=== PATIENT | female | born 1985 | race Two or more races ===

== ENCOUNTER 2025-05-23 15:00 | Inpatient (IN) | payer MEDICAID, OTHER ==
[~2025-05-23] VITALS: Ht 162.6 cm; Wt 83.0 kg
[2025-05-23 15:53] LABS: Hematocrit 40.3 % (36.0-46.0); Hemoglobin 13.8 g/dL (12.2-16.2); Mean Corpuscular Hemoglobin 31.6 pg (28.0-32.0); Mean Corpuscular Volume 92.4 fL (80.0-100.0); Nucleated Red Blood Cells % 0.0 %
[2025-05-23 16:10] LABS: Potassium 3.7 mmol/L (3.5-5.1); Sodium 140 mmol/L (136-145)
[2025-05-23 16:11] LABS: Anion Gap 9 (5-15); Calcium 9.3 mg/dL (8.7-10.4); Carbon Dioxide 24 mmol/L (20-31)
[2025-05-23 16:16] LABS: BUN/Creatinine Ratio 8.1 (10.0-20.0); Blood Urea Nitrogen 5 mg/dL (9-23); Chloride 107 mmol/L (98-107); Glucose 101 mg/dL (74-106)
--- NOTE | 2025-05-23 17:14 | ED.PDOC ---
History of Present Illness HPI Comments 39-year-old female presents with chief complaint of nonradiating, epigastric abdominal pain. Pain is intermittent in quality following initial, unprovoked and atraumatic onset, this morning. Last meal was a couple of noodle. Did not have any nausea, vomiting, diarrhea, or further associated symptoms. Chief Complaint: Abdominal Pain Time Seen by MD: 14:50 Reviewed Notes: Nurses Notes, Medications, Allergies Allergies: Coded Allergies: NO KNOWN ALLERGIES (Unverified , 05/23/25) Information Source: Patient Mode of Arrival: Ambulatory Severity: Moderate Timing: Hours Duration: Since onset Prehospital treatment: None Past Medical History PAST MEDICAL HISTORY: Denies Surgical History (Other): Unspecified laparoscopic procedure Family History Family History: Unknown Social History Smoker: Non-Smoker Alcohol: Denies ETOH Use Drugs: Denies Drug Use Lives In: Home All Other Systems: Reviewed and Negative (Comprehensive systems review obtained and negative except for what is stated in the HPI.) Physical Exam General Appearance: Moderate Distress HEENT: Normal ENT Inspection, Pharynx Normal, TMs Normal Neck: Full Range of Motion, Non-Tender, Normal, Normal Inspection Respiratory: Chest Non-Tender, Lungs Clear, No Accessory Muscle Use, No Respiratory Distress, Normal Breath Sounds Cardiovascular: No Edema, No JVD, No Murmur, No Gallop, Normal Peripheral Pulses, Regular Rate/Rhythm Breast Exam: Deferred Gastrointestinal: Diffuse Genitalia: Deferred Pelvic: Deferred Rectal: Deferred Extremities: No calf tenderness, Normal capillary refill, Normal inspection, Normal range of motion, Non-tender, No pedal edema Musculoskeletal : Apperance: Normal Neurologic: Alert, gearman II-XII nml as Tested, No Motor Deficits, Normal Affect, Normal Mood, No Sensory Deficits Cerebellar Function: Normal Reflexes: Normal Skin: Dry, Normal Color, Warm Peripheral Pulses: 3+ Radial (R), 3+ Radial (L) Lymphatic: No Adenopathy Was a procedure done? Was a procedure done?: No Differential Dx Considerations may include: Gastritis, gastroenteritis, GERD, PUD, gallstones, cholecystitis, among others X-Ray, Labs, Meds, VS Vital Signs Date Time Temp Pulse Resp B/P (MAP) Pulse Ox O2 Delivery O2 Flow Rate FiO2 05/23/25 15:02 98.0 63 15 117/75 100 98.0 Lab Test 05/23/25 15:33 Range/Units White Blood Count 7.1 4.4-10.8 10^3/uL Red Blood Count 4.37 4.0-5.20 10^6/uL Hemoglobin 13.8 12.2-16.2 g/dL Hematocrit 40.3 36.0-46.0 % Mean Corpuscular Volume 92.4 80.0-100.0 fL Mean Corpuscular Hemoglobin 31.6 28.0-32.0 pg Mean Corpuscular Hemoglobin Concent 34.2 32.0-36.0 g/dL Red Cell Distribution Width 12.7 11.8-14.3 % Platelet Count 331 140-450 10^3/uL Mean Platelet Volume 7.3 6.9-10.8 fL Neutrophils (%) (Auto) 74.4 37.0-80.0 % Lymphocytes (%) (Auto) 19.9 10.0-50.0 % Monocytes (%) (Auto) 4.4 0.0-12.0 % Eosinophils (%) (Auto) 0.7 0.0-7.0 % Basophils (%) (Auto) 0.6 0.0-2.0 % Neutrophils # (Auto) 5.3 1.6-8.6 10 ^3/uL Lymphocytes # (Auto) 1.4 0.4-5.4 10 ^3/uL Monocytes # (Auto) 0.3 0-1.3 10 ^3/uL Eosinophils # (Auto) 0 0-0.8 10 ^3/uL Basophils # (Auto) 0 0-0.2 10 ^3/uL Nucleated Red Blood Cells 0.0 % Sodium Level 140 136-145 mmol/L Potassium Level 3.7 3.5-5.1 mmol/L Chloride Level 107 98-107 mmol/L Carbon Dioxide Level 24 20-31 mmol/L Anion Gap 9 5-15 Blood Urea Nitrogen 5 L 9-23 mg/dL Creatinine 0.62 0.550-1.02 mg/dL Glomerular Filtration Rate Calc 116 >90 mL/min BUN/Creatinine Ratio 8.1 L 10.0-20.0 Serum Glucose 101 74-106 mg/dL Calcium Level 9.3 8.7-10.4 mg/dL Patient alert. Complaining of epigastric pain. Vitals stable. Answering questions. Possibly laparoscopic. Severe abdominal pain. WBC within normal limits. Hemoglobin within normal limits. Laboratory clinical picture does not correlate with the pain level she is having. Establish intravenous access. Was given fluids. Was given morphine. Was given Zofran. Explained to the patient. Continue monitoring. Time of 1ST Reevaluation: 17:20 Reevaluation 1ST: Unchanged Patient Education/Counseling: Diagnosis, Treatment, Need For Follow Up Family Education/Counseling: No Family Present SEPSIS Sepsis Screen Date sepsis recognized/suspect: May 23, 2025 Time Sepsis recognized/suspect: 1504 Recent Procedure: No On Antibiotic Therapy: No Respiratory Rate >20: No Heart Rate >90: No Temp<36 C (96.8 F) or >38.3 C: No SBP <90 or MAP <65 mmHG: No New Acute Mental Status Change: No Is the patient on CPAP, BIPAP,: No Physician Orders Urinalysis (05/23/25 15:20) Ct Ab Pel Wo Con-No Oral Or Iv (05/23/25 17:20) Vital Signs Date Time Temp Pulse Resp B/P (MAP) Pulse Ox O2 Delivery O2 Flow Rate FiO2 05/23/25 15:02 98.0 63 15 117/75 100 98.0 Laboratory Tests Test 05/23/25 15:33 White Blood Count 7.1 10^3/uL (4.4-10.8) Departure 1 Departure Time of Disposition: 17:30 Impression: Primary Impression: Intractable abdominal pain Disposition: ADMITTED INPATIENT Admit to: Med Surg Condition: Guarded Critical Care Note Critical Care Time?: No Stability Stability form required: No Heart Score Heart Score: Heart Score Response (Comments) Value History N/A 0 EKG N/A 0 Age N/A 0 Risk Factors N/A 0 Troponin N/A 0 Total 0 I personally scribed for MINISTERIO KESSLER MD ([email or web address]) on 05/23/25 at 17:14. Electronically submitted by Castillo Terrell ([email or web address]). MINISTERIO KESSLER MD May 23, 2025 17:14
--- NOTE | 2025-05-23 17:59 | DVH ---
EXAM: CT CT AB PEL WO CON-NO ORAL OR IV INDICATION: gastritis TECHNIQUE: Volumetric multidetector CT images of the abdomen and pelvis were obtained without contras t. All CT scans at this facility use dose modulation, iterative reconstruction, and/or weight based d osing when appropriate to reduce radiation dose to as low as reasonably achievable. COMPARISON: None FINDINGS: [LOWER CHEST]: The partially visualized lung bases are clear without a pleural effusion. The cardiac size is normal without pericardial effusion. [LIVER]: Normal hepatic size without suspicious focal lesion. [GALLBLADDER AND BILIARY TREE]: Surgically absent. [SPLEEN]: Unremarkable. [PANCREAS]: Unremarkable. [ADRENAL GLANDS]: Unremarkable [KIDNEYS]: No hydronephrosis. 1 mm nonobstructive left inferior renal caliceal stone. [BLADDER]: Unremarkable for the degree distention. [REPRODUCTIVE ORGANS]: Unremarkable. [BOWEL/MESENTERY]: No significant abnormal stomach wall thickening. no definitive evidence of gastrit is. Air-fluid level within the transverse colon. Correlate with clinical exam to exclude colitis. [ASCITES]: Absent [LYMPHADENOPATHY]: No pathologically enlarged lymph nodes by CT size criteria [VASCULATURE]: No aneurysmal dilatation. [ABDOMINAL WALL]: Unremarkable. [MUSCULOSKELETAL]: No acute fracture or aggressive focal osseous lesion. Posterior contour irregulari ty of the coccyx, which may be seen in the setting of prior trauma. IMPRESSION: 1. No CT evidence of acute gastritis. 2. Air-fluid level within the transverse colon. Correlate with clinical exam to exclude colitis.
[2025-05-23] MEDS: SODIUM CHLORIDE 0.9% 1,000 ML IV ONE (19:50)
[2025-05-23] MEDS: PIPERACILLIN-TAZOB 3.375GM 100 ML IV ONE (19:51)
[2025-05-23] MEDS: ONDANSETRON HCL 4 MG/2 ML VIAL IV ONE (19:51)
[2025-05-23] MEDS: MORPHINE SULFATE 4 MG/ML SYR/VIAL IV ONE (19:51)
[2025-05-23 23:00] VITALS: PULSE 48; RESP 14; O2SAT 98
--- NOTE | 2025-05-23 23:29 | DVHHP2 ---
History of Present Illness Reason for Visit: Abdominal pain History of Present Illness 39-year-old female presents for evaluation of abdominal pain. Patient endorses a one-week history of sharp epigastric abdominal pain. She states his symptoms became worse today with associated nausea, diarrhea and chills. Denies cardiac or respiratory complaints. Past Medical History Denies Past Surgical History Denies Family History Noncontributory Smoke: No ALCOHOL: none Drugs: None Lives: with Family Review of Systems Review of Systems Review of systems are currently negative otherwise addressed in HPI. Allergies: Coded Allergies: NO KNOWN ALLERGIES (Unverified , 05/23/25) Exam Vital Signs Vital Signs Date Time Temp Pulse Resp B/P (MAP) Pulse Ox O2 Delivery O2 Flow Rate FiO2 05/23/25 20:55 55 16 105/63 05/23/25 20:48 97.4 98 97.4 Exam Gen: 34-year-old female in mild distress Skin: Warm, dry, normal color and texture, no rash. HEENT: Normocephalic atraumatic, mucous membranes moist and pink. Neck: Cervical and supraclavicular nodes normal without enlargement, trachea is midline, thyroid gland is normal without masses. Pulmonary: Clear to auscultation and percussion bilaterally. Cardiac: Regular rate and rhythm. No murmur Abdomen: Soft, epigastric tenderness, nondistended, bowel sounds present all 4 quadrants, no guarding, no rigidity, no organomegaly. Extremities: No cyanosis, clubbing, no edema Neuro: Cranial nerves II through XII grossly intact, normal affect and speech, no focal motor deficits. Labs/Xrays ORDERING PHYSICIAN: MINISTERIO KESSLER MD PROCEDURE(s): ABPL - CT AB PEL WO CON-NO ORAL OR IV REASON: gastritis ORDER NUMBER(s): [id number], ACCESSION NUMBER(s): [id number] EXAM: CT CT AB PEL WO CON-NO ORAL OR IV INDICATION: gastritis TECHNIQUE: Volumetric multidetector CT images of the abdomen and pelvis were obtained without contrast. All CT scans at this facility use dose modulation, iterative reconstruction, and/or weight based dosing when appropriate to reduce radiation dose to as low as reasonably achievable. COMPARISON: None FINDINGS: [LOWER CHEST]: The partially visualized lung bases are clear without a pleural effusion. The cardiac size is normal without pericardial effusion. [LIVER]: Normal hepatic size without suspicious focal lesion. [GALLBLADDER AND BILIARY TREE]: Surgically absent. [SPLEEN]: Unremarkable. [PANCREAS]: Unremarkable. [ADRENAL GLANDS]: Unremarkable [KIDNEYS]: No hydronephrosis. 1 mm nonobstructive left inferior renal caliceal stone. [BLADDER]: Unremarkable for the degree distention. [REPRODUCTIVE ORGANS]: Unremarkable. [BOWEL/MESENTERY]: No significant abnormal stomach wall thickening. no definitive evidence of gastritis. Air-fluid level within the transverse colon. Correlate with clinical exam to exclude colitis. [ASCITES]: Absent [LYMPHADENOPATHY]: No pathologically enlarged lymph nodes by CT size criteria [VASCULATURE]: No aneurysmal dilatation. [ABDOMINAL WALL]: Unremarkable. [MUSCULOSKELETAL]: No acute fracture or aggressive focal osseous lesion. Posterior contour irregularity of the coccyx, which may be seen in the setting of prior trauma. IMPRESSION: 1. No CT evidence of acute gastritis. 2. Air-fluid level within the transverse colon. Correlate with clinical exam to exclude colitis. Labs Test 05/23/25 15:33 Range/Units White Blood Count 7.1 4.4-10.8 10^3/uL Red Blood Count 4.37 4.0-5.20 10^6/uL Hemoglobin 13.8 12.2-16.2 g/dL Hematocrit 40.3 36.0-46.0 % Mean Corpuscular Volume 92.4 80.0-100.0 fL Mean Corpuscular Hemoglobin 31.6 28.0-32.0 pg Mean Corpuscular Hemoglobin Concent 34.2 32.0-36.0 g/dL Red Cell Distribution Width 12.7 11.8-14.3 % Platelet Count 331 140-450 10^3/uL Mean Platelet Volume 7.3 6.9-10.8 fL Neutrophils (%) (Auto) 74.4 37.0-80.0 % Lymphocytes (%) (Auto) 19.9 10.0-50.0 % Monocytes (%) (Auto) 4.4 0.0-12.0 % Eosinophils (%) (Auto) 0.7 0.0-7.0 % Basophils (%) (Auto) 0.6 0.0-2.0 % Neutrophils # (Auto) 5.3 1.6-8.6 10 ^3/uL Lymphocytes # (Auto) 1.4 0.4-5.4 10 ^3/uL Monocytes # (Auto) 0.3 0-1.3 10 ^3/uL Eosinophils # (Auto) 0 0-0.8 10 ^3/uL Basophils # (Auto) 0 0-0.2 10 ^3/uL Nucleated Red Blood Cells 0.0 % Sodium Level 140 136-145 mmol/L Potassium Level 3.7 3.5-5.1 mmol/L Chloride Level 107 98-107 mmol/L Carbon Dioxide Level 24 20-31 mmol/L Anion Gap 9 5-15 Blood Urea Nitrogen 5 L 9-23 mg/dL Creatinine 0.62 0.550-1.02 mg/dL Glomerular Filtration Rate Calc 116 >90 mL/min BUN/Creatinine Ratio 8.1 L 10.0-20.0 Serum Glucose 101 74-106 mg/dL Calcium Level 9.3 8.7-10.4 mg/dL SEPSIS Sepsis Screen Date sepsis recognized/suspect: May 23, 2025 Time Sepsis recognized/suspect: 1504 Recent Procedure: No On Antibiotic Therapy: No Respiratory Rate >20: No Heart Rate >90: No Temp<36 C (96.8 F) or >38.3 C: No SBP <90 or MAP <65 mmHG: No New Acute Mental Status Change: No Is the patient on CPAP, BIPAP,: No Physician Orders Ct Ab Pel Wo Con-No Oral Or Iv (05/23/25 17:20) Lipase (05/23/25 23:23) Comprehensive Metabolic Panel (05/23/25 23:23) Complete Blood Count (05/23/25 23:23) Metronidazole Ivpb Flagyl (05/24/25 06:00) * Gi Dvh Vacuum Applicator Operator (05/23/25 23:23) Stool Bacterial Culture (05/23/25 23:23) NS (05/23/25 23:30) Pantoprazole (Protonix) (05/24/25 10:00) Pantoprazole (Protonix) (05/23/25 23:30) Admit (05/23/25 23:23) Hydrocodone-Acet 5/325mg Tab ([place] 5/32 (05/23/25 23:30) Ondansetron Hcl (Zofran) (05/23/25 23:30) Condition: Stable (05/23/25 23:23) Acetaminophen Tablet (Tylenol Tablet) (05/23/25 23:30) Clear Liq Diet (05/24/25 Breakfast) Bedrest With Bathroom Privileg (05/23/25 23:23) Morphine Sulfate Injection (05/23/25 23:30) Vital Signs Date Time Temp Pulse Resp B/P (MAP) Pulse Ox O2 Delivery O2 Flow Rate FiO2 05/23/25 20:55 55 16 105/63 05/23/25 20:48 97.4 55 16 105/63 (77) 98 97.4 05/23/25 19:51 74 18 132/77 Laboratory Tests Test 05/23/25 15:33 White Blood Count 7.1 10^3/uL (4.4-10.8) Medications Medications Dose Ordered Sig/Scott Route Start Time Stop Time Status Last Admin Dose Admin Morphine Sulfate 4 mg ONCE ONCE IV 05/23/25 17:45 05/23/25 17:46 DC 05/23/25 19:51 4 MG Ondansetron HCl 4 mg ONCE ONCE IV 05/23/25 17:45 05/23/25 17:46 DC 05/23/25 19:51 4 MG Piperacillin Sod/ Tazobactam Sod 100 ml @ 100 mls/hr ONCE ONCE IV 05/23/25 18:15 05/23/25 19:14 DC 05/23/25 19:51 100 MLS/HR Sodium Chloride 1,000 ml @ 1,000 mls/hr Q1H ONCE IV 05/23/25 17:45 05/23/25 18:44 DC 05/23/25 19:50 1,000 MLS/HR Assessment/Plan Assessment/Plan Assessment Acute abdominal pain Acute colitis Plan Admit the patient to [facility] to the hospitalist Clear liquid diet GI consult Flagyl Pain management Continue treatment per orders. Plan discussed with: Patient My Orders Orders - JENNA EL Procedure Category Date Status Time Lipase LAB 05/23/25 Transmitted 23:23 Comprehensive LAB 05/23/25 Transmitted Metabolic Panel 23:23 Complete Blood Count LAB 05/23/25 Transmitted 23:23 Metronidazole Ivpb PHA 05/24/25 Transmitted Flagyl 06:00 * Gi Dvh Vacuum Applicator Operator CONS 05/23/25 Transmitted 23:23 Stool Bacterial RADHA 05/23/25 Transmitted Culture 23:23 NS PHA 05/23/25 Transmitted 23:30 Pantoprazole PHA 05/24/25 Transmitted (Protonix) 10:00 Pantoprazole PHA 05/23/25 Transmitted (Protonix) 23:30 Admit ADMIT 05/23/25 Transmitted 23:23 Hydrocodone-Acet PHA 05/23/25 Transmitted 5/325mg Tab ([place] 23:30 Ondansetron Hcl PHA 05/23/25 Transmitted (Zofran) 23:30 Condition: Stable JESUS 05/23/25 Transmitted 23:23 Acetaminophen Tablet PHA 05/23/25 Transmitted (Tylenol Tablet) 23:30 Clear Liq Diet DIET 05/24/25 Transmitted Breakfast Bedrest With Bathroom JESUS 05/23/25 Transmitted Privileg 23:23 Morphine Sulfate PHA 05/23/25 Transmitted Injection 23:30 Date of Service: May 23, 2025 Billing Provider: JENNA EL Common Visit Codes: [id number] INP/OBS CARE (MOD) JENNA EL May 23, 2025 23:29
[2025-05-23] MEDS ORDERED: MORPHINE SULFATE INJ 2 MG/ml SYRG IV PRN (23:30)
[2025-05-23] MEDS ORDERED: ACETAMINOPHEN 325 MG TAB PO PRN (23:30)
[2025-05-23] MEDS ORDERED: ONDANSETRON HCL 4 MG/2 ML VIAL IV PRN (23:30)
[2025-05-23 23:54] LABS: Hematocrit 37.6 % (36.0-46.0); Hemoglobin 12.7 g/dL (12.2-16.2); Mean Corpuscular Hemoglobin 31.4 pg (28.0-32.0); Mean Corpuscular Volume 92.9 fL (80.0-100.0); Nucleated Red Blood Cells % 0.0 %
[2025-05-24] VITALS (7 sets, daily range): BP systolic 94–122; BP diastolic 56–78; PULSE 50–76; RESP 12–18; TEMP 96.2–97.8; O2SAT 95–100
[2025-05-24 00:02] LABS: Alanine Aminotransferase 28 U/L (7-40); Albumin 4.2 g/dL (3.2-4.8); Alkaline Phosphatase 49 U/L (46-116); Anion Gap 8 (5-15); Bilirubin, Total 0.8 mg/dL (0.2-1.0); Carbon Dioxide 25 mmol/L (20-31); Glucose 93 mg/dL (74-106); Lipase 28 U/L (12-53); Sodium 141 mmol/L (136-145); Total Protein 6.6 g/dL (5.7-8.2)
[2025-05-24] MEDS: PANTOPRAZOLE 40 MG/10 ML VIAL INJ IV ONE (00:03)
[2025-05-24] MEDS: SODIUM CHLORIDE 0.9% 1,000 ML IV ONE (00:04)
[2025-05-24 00:07] LABS: BUN/Creatinine Ratio 7.4 (10.0-20.0); Blood Urea Nitrogen < 5 mg/dL (9-23); Calcium 8.5 mg/dL (8.7-10.4); Chloride 108 mmol/L (98-107); Potassium 3.4 mmol/L (3.5-5.1)
[2025-05-24] MEDS: HYDROcodone-ACET 5/325MG TAB ONE (01:05)
[2025-05-24] MEDS: HYDROcodone-ACET 5/325MG TAB PO PRN ×2 (01:06→12:05)
[2025-05-24] MEDS ORDERED: IBUP-1453 PO (03:17)
[2025-05-24] MEDS ORDERED: PANTOPRAZOLE 40 MG/10 ML VIAL INJ IV SCH (10:00)
--- NOTE | 2025-05-24 12:32 | DVHPN2 ---
Subjective The patient is seen and examined at bedside. Still complain of abdominal pain. Reviewed: Care Plan, H&P, Labs, Medications, Previous Orders, Radiology Changes from previous H/P or p: No Changes Objective Vitals Vital Signs Date Time Temp Pulse Resp B/P (MAP) Pulse Ox O2 Delivery O2 Flow Rate FiO2 05/24/25 10:06 96.2 50 16 95/63 (74) 97 96.2 05/24/25 08:00 Room Air* 0 21 Intake/Output Intake and Output 05/24/25 07:00 Intake Total 1100 ml Balance 1100 ml Intake IV Total 1100 ml General Appearance: Alert, Oriented X3, Cooperative HEENT: Atraumatic, PERRLA, EOMI, Mucous membr. moist/pink Neck: Supple Lungs: Clear to auscultation, Normal air movement Cardiovascular: Regular rate, Normal S1, Normal S2, No murmurs, Gallops, Rubs Abdomen: Normal bowel sounds, Soft, No tenderness Extremities: Normal pulses Neuro: Cranial nerves 3-12 NL Psych/Mental Status: Mental status NL Medications Current Medications Medications Dose Ordered Sig/Scott Route Start Time Stop Time Status Last Admin Dose Admin Metronidazole 100 ml @ 100 mls/hr Q8HR IV 05/24/25 14:00 Pantoprazole Sodium 40 mg DAILY IV 05/25/25 10:00 Acetaminophen/ Hydrocodone Bitart 1 tab Q4HP PRN PO 05/24/25 11:30 05/24/25 12:05 1 TAB Ondansetron HCl 4 mg Q4HP PRN IV 05/24/25 11:30 Acetaminophen 650 mg Q6HP PRN PO 05/24/25 11:30 Morphine Sulfate 2 mg Q6HPRN PRN IV 05/24/25 11:30 Ceftriaxone Sodium 50 ml @ 100 mls/hr DAILY@09 IV 05/25/25 09:00 Laboratory Results Laboratory Tests 05/23/25 23:33 Chemistry Test 05/23/25 15:33 05/23/25 23:33 Calcium Level 9.3 mg/dL (8.7-10.4) 8.5 mg/dL (8.7-10.4) L Albumin 4.2 g/dL (3.2-4.8) Total Protein 6.6 g/dL (5.7-8.2) Lipid panel Test 05/23/25 23:33 Lipase 28 U/L (12-53) LFT Test 05/23/25 23:33 Alanine Aminotransferase (ALT) 28 U/L (7-40) Alkaline Phosphatase 49 U/L (46-116) Aspartate Amino Transferase (AST) 73 U/L (13-40) H Total Bilirubin 0.8 mg/dL (0.2-1.0) Labs and/or images reviewed: Labs reviewed by me Assessment/Plan Assessment/Plan Acute abdominal pain Acute colitis Continuing current management. Continuing with IV antibiotic. Continuing with Zofran. Continuing with IV fluid. Waiting for GI specialist to see her. Waiting for stool culture and stool C diff. This medical document was created using an electronic medical record system with [employer] direct computerized dictation system. Although this document has been carefully reviewed, there may still be some phonetic and typographical errors. These areas are purely typographical due to imperfections of the software programs, and do not reflect any compromise in the patient's medical care. Plan discussed with: Patient Date of Service: May 24, 2025 Billing Provider: JEREMY PAGE MD Common Visit Codes: [id number] INP/OBS CARE(HIGH) JEREMY PAGE MD May 24, 2025 12:32
--- NOTE | 2025-05-24 14:22 | DVHINCON2 ---
GI Consult Consult Note GI consult note Date of Consultation: 05/24/2025 Chief Complaint: Abdominal pain Referring Physician: Shane LOPEZ H&P: 39-year-old female admitted for abdominal pain. Patient complains of epigastric abdominal pain on and off for one month, and has been getting worse in the last few days. Patient admits to having nausea and vomiting, denies hematemesis. Also has loose stool seems mucousy for more than a one month. No melena or red blood in stool. Last bowel movement with this morning. Status post cholecystectomy two years ago. No colonoscopy in past Past Medical History: Denies Past Surgical History: Cholecystectomy Social History: NO smoking, drinking ETOH and use of illegal drugs. Family History: Noncontributory Review of Systems: Constitutional: no fever, chill, weight loss HEENT: no eye pain, no hearing loss, no oral lesion, no scleral icterus Heart: no chest pain, no chest pressure Lung: no cough, no dyspnea with exertion Abdomen: see HPI Physical exam: General: NAD, AAOX3 Chest: lung gauthier clear to auscultation Heart: RRR, no murmur Abdomen: Moderate tenderness in upper abdomen tenderness to palpation, +BS Labs: Labs Test 05/24/25 04:45 05/23/25 23:39 05/23/25 23:33 Range/Units Lactic Acid Level 0.7 0.4-2.0 mmol/L White Blood Count 7.9 4.4-10.8 10^3/uL Red Blood Count 4.05 4.0-5.20 10^6/uL Hemoglobin 12.7 12.2-16.2 g/dL Hematocrit 37.6 36.0-46.0 % Mean Corpuscular Volume 92.9 80.0-100.0 fL Mean Corpuscular Hemoglobin 31.4 28.0-32.0 pg Mean Corpuscular Hemoglobin Concent 33.8 32.0-36.0 g/dL Red Cell Distribution Width 13.2 11.8-14.3 % Platelet Count 274 140-450 10^3/uL Mean Platelet Volume 7.1 6.9-10.8 fL Neutrophils (%) (Auto) 72.9 37.0-80.0 % Lymphocytes (%) (Auto) 20.8 10.0-50.0 % Monocytes (%) (Auto) 5.2 0.0-12.0 % Eosinophils (%) (Auto) 0.9 0.0-7.0 % Basophils (%) (Auto) 0.2 0.0-2.0 % Neutrophils # (Auto) 5.8 1.6-8.6 10 ^3/uL Lymphocytes # (Auto) 1.6 0.4-5.4 10 ^3/uL Monocytes # (Auto) 0.4 0-1.3 10 ^3/uL Eosinophils # (Auto) 0.1 0-0.8 10 ^3/uL Basophils # (Auto) 0 0-0.2 10 ^3/uL Nucleated Red Blood Cells 0.0 % Sodium Level 141 136-145 mmol/L Potassium Level 3.4 L 3.5-5.1 mmol/L Chloride Level 108 H 98-107 mmol/L Carbon Dioxide Level 25 20-31 mmol/L Anion Gap 8 5-15 Blood Urea Nitrogen < 5 L 9-23 mg/dL Creatinine 0.68 0.550-1.02 mg/dL Glomerular Filtration Rate Calc 114 >90 mL/min BUN/Creatinine Ratio 7.4 L 10.0-20.0 Serum Glucose 93 74-106 mg/dL Calcium Level 8.5 L 8.7-10.4 mg/dL Total Bilirubin 0.8 0.2-1.0 mg/dL Aspartate Amino Transferase (AST) 73 H 13-40 U/L Alanine Aminotransferase (ALT) 28 7-40 U/L Alkaline Phosphatase 49 46-116 U/L Total Protein 6.6 5.7-8.2 g/dL Albumin 4.2 3.2-4.8 g/dL Lipase 28 12-53 U/L Imaging: CT abdomen pelvis IMPRESSION: 1. No CT evidence of acute gastritis. 2. Air-fluid level within the transverse colon. Correlate with clinical exam to exclude colitis. Assessment: Abdominal pain Colitis Abnormal CT results Diarrhea Plan: Discussed with Dr. Lakhani IV antibiotics Stool for bacterial culture WBC and C diff Clear liquid diet advance to full liquid if tolerating We will continue to monitor patient Plan discussed with patient and RN Thank you for this consult Date of Service: May 24, 2025 Billing Provider: ROBERT CASTRO Common Visit Codes: CONSULT ONLY Consultation Codes: [id number] CONSULT <60MIN ROBERT CASTRO May 24, 2025 14:21
[2025-05-24] MEDS: ONDANSETRON HCL 4 MG/2 ML VIAL IV PRN (21:27)
[2025-05-24] MEDS: MORPHINE SULFATE INJ 2 MG/ml SYRG IV PRN (21:33)
[2025-05-25] VITALS (11 sets, daily range): BP systolic 96–134; BP diastolic 48–80; PULSE 42–60; RESP 12–19; TEMP 97.3–98.1; O2SAT 94–100
[2025-05-25] MEDS: PANTOPRAZOLE 40 MG/10 ML VIAL INJ IV SCH (08:30)
[2025-05-25] MEDS: ACETAMINOPHEN 325 MG TAB PO PRN (08:42)
[2025-05-25] MEDS ORDERED: IBUP1TAB4 PO (08:45)
[2025-05-25 11:07] LABS: Hepatitis B Surface Antigen Negative (Negative); Hepatitis C Antibody Negative (Negative)
[2025-05-25 12:16] LABS: Urine Protein, UAD Negative (Negative)
--- NOTE | 2025-05-25 12:18 | DVHPN2 ---
Subjective The patient is seen and examined at bedside. Still complain of abdominal pain. Waiting for EGD today. No diarrhea Reviewed: Care Plan, H&P, Labs, Medications, Previous Orders, Radiology Changes from previous H/P or p: No Changes Objective Vitals Vital Signs Date Time Temp Pulse Resp B/P (MAP) Pulse Ox O2 Delivery O2 Flow Rate FiO2 05/25/25 09:00 98.0 54 18 110/70 (83) 95 98.0 05/24/25 08:00 Room Air* 0 21 Intake/Output Intake and Output 05/25/25 07:00 Intake Total 100 ml Balance 100 ml Intake IV Total 100 ml General Appearance: Alert, Oriented X3, Cooperative HEENT: Atraumatic, PERRLA, EOMI, Mucous membr. moist/pink Neck: Supple Lungs: Clear to auscultation, Normal air movement Cardiovascular: Regular rate, Normal S1, Normal S2, No murmurs, Gallops, Rubs Abdomen: Normal bowel sounds, Soft, No tenderness Extremities: Normal pulses Neuro: Cranial nerves 3-12 NL Psych/Mental Status: Mental status NL Medications Current Medications Medications Dose Ordered Sig/Scott Route Start Time Stop Time Status Last Admin Dose Admin Metronidazole 100 ml @ 100 mls/hr Q8HR IV 05/24/25 14:00 05/25/25 06:41 100 MLS/HR Pantoprazole Sodium 40 mg DAILY IV 05/25/25 10:00 05/25/25 08:30 40 MG Acetaminophen/ Hydrocodone Bitart 1 tab Q4HP PRN PO 05/24/25 11:30 05/24/25 12:05 1 TAB Ondansetron HCl 4 mg Q4HP PRN IV 05/24/25 11:30 05/24/25 21:27 4 MG Acetaminophen 650 mg Q6HP PRN PO 05/24/25 11:30 05/25/25 08:42 650 MG Morphine Sulfate 2 mg Q6HPRN PRN IV 05/24/25 11:30 05/24/25 21:33 2 MG Ceftriaxone Sodium 50 ml @ 100 mls/hr DAILY@09 IV 05/25/25 09:00 05/25/25 08:31 100 MLS/HR Ibuprofen 400 mg Q6HP PRN PO 05/25/25 11:45 UNV Laboratory Results Laboratory Tests 05/23/25 23:33 Urinalysis Test 05/25/25 11:12 Urine Color Colorless (Yellow) Urine Clarity Clear (Clear) Urine pH 6.5 (5.0-9.0) Urine Specific [place] 1.003 (1.001-1.035) Urine Protein Negative (Negative) Urine Ketones Negative (Negative) Urine Blood Negative /uL (Negative) Urine Nitrite Negative (Negative) Urine Bilirubin Negative (Negative) Urine Urobilinogen Normal mg/dL (Negative) Urine Leukocyte Esterase Negative /uL (Negative) Urine RBC None seen /hpf (0 - 4) Urine Microscopic WBC < 1 /HPF (0-5) Urine Squamous Epithelial Cells Few /hpf (<5) Urine Bacteria None seen /hpf (None Seen) Urine Glucose Normal mg/dL (Normal) Labs and/or images reviewed: Labs reviewed by me Assessment/Plan Assessment/Plan Acute abdominal pain Acute colitis Continuing current management. Continuing with IV antibiotic. Continuing with Zofran. Continuing with IV fluid. Waiting for GI specialist to see her. Waiting for stool culture and stool C diff. This medical document was created using an electronic medical record system with [employer] direct computerized dictation system. Although this document has been carefully reviewed, there may still be some phonetic and typographical errors. These areas are purely typographical due to imperfections of the software programs, and do not reflect any compromise in the patient's medical care. Plan discussed with: Patient My Orders Orders - JEREMY PAGE MD Procedure Category Date Status Time Ibuprofen Tablet PHA 05/25/25 Logged (Motrin Tablet) 11:45 Date of Service: May 25, 2025 Billing Provider: JEREMY PAGE MD Common Visit Codes: [id number] INP/OBS CARE(HIGH) JEREMY PAGE MD May 25, 2025 12:18
[2025-05-25] MEDS: IBUPROFEN 400 MG TAB PO PRN (12:30)
[2025-05-25] MEDS ORDERED: SODIUM CHLORIDE LOCK 10 ML ONE (13:24)
[2025-05-25 13:39] LABS: Hematocrit 38.4 % (36.0-46.0); Hemoglobin 13.1 g/dL (12.2-16.2); Mean Corpuscular Hemoglobin 31.5 pg (28.0-32.0); Mean Corpuscular Volume 92.3 fL (80.0-100.0); Nucleated Red Blood Cells % 0.2 %
[2025-05-25 13:49] LABS: Albumin 4.3 g/dL (3.2-4.8); Alkaline Phosphatase 63 U/L (46-116); Anion Gap 7 (5-15); Bilirubin, Total 0.5 mg/dL (0.2-1.0); Calcium 9.3 mg/dL (8.7-10.4); Carbon Dioxide 28 mmol/L (20-31); Chloride 106 mmol/L (98-107); Glucose 94 mg/dL (74-106); Potassium 4.1 mmol/L (3.5-5.1); Sodium 141 mmol/L (136-145); Total Protein 6.6 g/dL (5.7-8.2)
[2025-05-25 13:52] LABS: INR 0.97 (0.9-1.15); Partial Thromboplastin Time 27.1 SEC (24.5-34.5); Prothrombin Time 10.3 sec (9.3-11.8)
[2025-05-25 14:05] LABS: Alanine Aminotransferase 51 U/L (7-40); BUN/Creatinine Ratio 6.3 (10.0-20.0); Blood Urea Nitrogen < 5 mg/dL (9-23)
[2025-05-25] MEDS: MIDAZOLAM HCL 5 MG/ML-1ML VIAL ONE (14:33)
[2025-05-25] MEDS: fentaNYL CITRATE 100 MCG/2 ML VL ONE (14:33)
[2025-05-25] MEDS: diphenhdrAMINE HCL 50 MG/1 ML VL ONE (14:33)
[2025-05-25] MEDS: LIDOCAINE VISCOUS 2% 15ML UD ONE (14:33)
--- NOTE | 2025-05-25 14:44 | DVHOP2 ---
Operative Report DATE OF OPERATION: 05/25/25 PROCEDURE: Upper Endoscopy with biopsy. PREOPERATIVE INDICATION: The patient is a 39 -year-old female undergoing endoscopy for epigastric pain POSTOPERATIVE DIAGNOSES: 1. Mild linear antral gastritis PROCEDURE PERFORMED BY: Red Lakhani GI NURSE: Brooke SCOPE: Olympus videoendoscope. ASA CLASS: 2. PREOPERATIVE MEDICATIONS: Versed 4 mg, Fentanyl 100 mcg, Benadryl 50 mg PROCEDURE IN DETAIL: After obtaining an informed consent, the patient was placed on left lateral decubitus position. The patient was then sedated with the above medications. A bite block was placed between her teeth. The endoscope was then passed through the oropharynx, into the esophagus, and through the stomach and pylorus up to the second and third part of the duodenum. The endoscope was then withdrawn. The 2nd and 3rd part of the duodenal and the duodenal bulb were normal. The pre-pyloric area and antrum showed mild gastritis linear gastritis On retroflexion the fundus and cardia were normal. There was no significant hiatal hernia The patient tolerated the procedure well without difficulty. COMPLICATIONS : None SPECIMENS: Duodenal biopsies Gastric biopsies DISPOSITION: Transfer back to the floor Stable PLAN: 1. Await for biopsy result 2. Will place pt on Protonix 40 mg bid 3. Carafate 1 g p.o. twice a day 4. Full liquid diet advance as tolerated 5. Outpatient follow up with me in 4-6 weeks to review results and discuss further management RED LAKHANI MD May 25, 2025 14:44
[2025-05-25] MEDS: SUCRALFATE 1 GM/10 ML ORAL SUSP PO SCH (22:09)
[2025-05-26 01:00] VITALS: BP 110/62; PULSE 53; RESP 18; TEMP 97.7; O2SAT 97
[2025-05-26 05:00] VITALS: BP 110/73; PULSE 57; RESP 18; TEMP 98.4; O2SAT 99
[2025-05-26 08:00] VITALS: PULSE 58; O2SAT 97
[2025-05-26 09:00] VITALS: BP 99/52; PULSE 58; RESP 17; TEMP 98.5; O2SAT 97
--- NOTE | 2025-05-26 09:51 | DVHDS2 ---
Discharge Summary Date of Admission May 23, 2025 at 23:23 Date of Discharge: May 26, 2025 Admitting Diagnosis Acute abdominal pain Acute colitis Labs/Diagnostic Data: Laboratory Results Test 05/25/25 13:04 05/25/25 11:12 05/24/25 04:45 05/23/25 23:39 White Blood Count 4.5 10^3/uL (4.4-10.8) Red Blood Count 4.16 10^6/uL (4.0-5.20) Hemoglobin 13.1 g/dL (12.2-16.2) Hematocrit 38.4 % (36.0-46.0) Mean Corpuscular Volume 92.3 fL (80.0-100.0) Mean Corpuscular Hemoglobin 31.5 pg (28.0-32.0) Mean Corpuscular Hemoglobin Concent 34.2 g/dL (32.0-36.0) Red Cell Distribution Width 13.1 % (11.8-14.3) Platelet Count 271 10^3/uL (140-450) Mean Platelet Volume 7.3 fL (6.9-10.8) Neutrophils (%) (Auto) 65.7 % (37.0-80.0) Lymphocytes (%) (Auto) 28.0 % (10.0-50.0) Monocytes (%) (Auto) 4.9 % (0.0-12.0) Eosinophils (%) (Auto) 0.9 % (0.0-7.0) Basophils (%) (Auto) 0.5 % (0.0-2.0) Neutrophils # (Auto) 3.0 10 ^3/uL (1.6-8.6) Lymphocytes # (Auto) 1.3 10 ^3/uL (0.4-5.4) Monocytes # (Auto) 0.2 10 ^3/uL (0-1.3) Eosinophils # (Auto) 0 10 ^3/uL (0-0.8) Basophils # (Auto) 0 10 ^3/uL (0-0.2) Nucleated Red Blood Cells 0.2 % Prothrombin Time 10.3 sec (9.3-11.8) Prothrombin Time INR 0.97 (0.9-1.15) Activated Partial Thromboplast Time 27.1 SEC (24.5-34.5) Sodium Level 141 mmol/L (136-145) Potassium Level 4.1 mmol/L (3.5-5.1) Chloride Level 106 mmol/L (98-107) Carbon Dioxide Level 28 mmol/L (20-31) Anion Gap 7 (5-15) Blood Urea Nitrogen < 5 mg/dL (9-23) Creatinine 0.79 mg/dL (0.550-1.02) Glomerular Filtration Rate Calc 98 mL/min (>90) BUN/Creatinine Ratio 6.3 (10.0-20.0) Serum Glucose 94 mg/dL (74-106) Calcium Level 9.3 mg/dL (8.7-10.4) Total Bilirubin 0.5 mg/dL (0.2-1.0) Aspartate Amino Transferase (AST) 40 U/L (13-40) Alanine Aminotransferase (ALT) 51 U/L (7-40) Alkaline Phosphatase 63 U/L (46-116) Total Protein 6.6 g/dL (5.7-8.2) Albumin 4.3 g/dL (3.2-4.8) Beta HCG, Quantitative < 0.0 mIU/mL (1.5-4.2) Urine Color Colorless (Yellow) Urine Clarity Clear (Clear) Urine pH 6.5 (5.0-9.0) Urine Specific [place] 1.003 (1.001-1.035) Urine Protein Negative (Negative) Urine Ketones Negative (Negative) Urine Blood Negative /uL (Negative) Urine Nitrite Negative (Negative) Urine Bilirubin Negative (Negative) Urine Urobilinogen Normal mg/dL (Negative) Urine Leukocyte Esterase Negative /uL (Negative) Urine RBC None seen /hpf (0 - 4) Urine Microscopic WBC < 1 /HPF (0-5) Urine Squamous Epithelial Cells Few /hpf (<5) Urine Bacteria None seen /hpf (None Seen) Urine Glucose Normal mg/dL (Normal) Hepatitis B Surface Antigen Negative (Negative) Hepatitis C Antibody Negative (Negative) Lactic Acid Level 0.7 mmol/L (0.4-2.0) Test 05/23/25 23:33 Lipase 28 U/L (12-53) Other Laboratory Tests 05/25/25 13:04 Brief Hx & Hospital Course: This is a 39 years old female came to emergency department because severe abdominal pain. Patient and dose one week history of sharp epigastric abdominal pain associated with nausea, diarrhea, chills and vomiting. The patient subsequently had EGD done which showed mild gastritis linear gastritis. GI specialist Dr. Lakhani recommend put the patient on Protonix and Carafate. Patient also had diarrhea and CT scan abdomen pelvis showed colitis. Recommend outpatient colonoscopy. The patient was put on IV antibiotic with Rocephin and Flagyl. Today the patient doing well. No fever or chill. Patient will be discharged home. Advised her to follow up with GI specialist for biopsy results. Advised the patient to follow up with primary care physician 1-2 weeks. Activity as tolerated. Diet home diet. Avoid spicy food and excess amount of coffee. Physical exam: HEENT: Normocephalic atraumatic pupils equal react to light and accommodation. Extraocular muscles intact, conjunctiva pink, oropharynx moist, no thrush, no exudate. Lymphatic: No lymphadenopathy Cardiovascular exam: S1, S2 was heard. No murmurs, rubs, gallops Lung: Clear on auscultation bilaterally, no wheeze, rale, rhonchi. GI: Abdominal soft, nondistended, nontenderness, positive bowel sounds. Extremity: No crepitus, cyanosis, edema. Pedal pulses present bilateral. Full range of motion. Skin: Normal turgor, no rash. Psych: Alert, oriented x3. Neurology: No focal deficits, cranial nerve II to XII grossly intact. This medical document was created using an electronic medical record system with [employer] direct computerized dictation system. Although this document has been carefully reviewed, there may still be some phonetic and typographical errors. These areas are purely typographical due to imperfections of the software programs, and do not reflect any compromise in the patient's medical care. Condition at Discharge: Stable Final Diagnosis/Problems List Acute abdominal pain Acute colitis Gastritis Discharge Disposition: Home Discharge Instruct/Medications Scheduled Ibuprofen (Ibuprofen), 1 TAB PO Q6HPRN, (Reported) Levofloxacin Hemihydrate (Levaquin 500 Mg), 1 TAB PO DAILY Metronidazole (Flagyl), 500 MG PO TID Pantoprazole Sodium Sesquihydr (Protonix), 40 MG PO DAILY Sucralfate (Carafate Susp), 1 GM PO BID Scheduled PRN Ibuprofen Micronized (Ibuprofen), 500 MG PO DAILY PRN for FOR HEADACHE, (Reported) Discharge Statement: "Patient was advised to return to the ER or call 911 if any headaches, dizziness, shortness of breath, chest pain, abdominal pain, bleeding, fevers, or worsening of medical condition. Patient was counseled about treatment plan, medications, possible side effects, patientverbalized understanding. All questions were answered to the best of my ability. This discharge took greater then 30 minutes in planning, reviewing documentation, counseling the patient, and discussing with other team members." ASSESSMENT ASSESSMENT Assessment Date of Service: May 26, 2025 Billing Provider: JEREMY PAGE MD Common Visit Codes: [id number] DISCH DAY >30min JEREMY PAGE MD May 26, 2025 09:51
[2025-05-26] MEDS ORDERED: LEVO500T91 PO (09:53)
[2025-05-26] MEDS ORDERED: METR-344 PO (09:53)
[2025-05-26] MEDS ORDERED: SUCR1SUS26 PO (09:53)
[2025-05-26] MEDS ORDERED: PANT40TA2 PO (09:53)
--- NOTE | 2025-05-26 22:25 | DVHPN2 ---
Progress Note - Dictate Date Seen: May 26, 2025 (Late entryPatient seen at 10:00 a.m.) Medical Necessity Reason Pt with a Central, PICC or Fol: No Subjective Patient was seen at bedside She is feeling better She is still had a soft mushy brown bowel movement with no blood today Stool cultures were negative EGD findings reviewed mild gastritis vital signs Vital Sign Date Time Temp Pulse Resp B/P (MAP) Pulse Ox O2 Delivery O2 Flow Rate FiO2 05/26/25 09:00 98.5 58 17 99/52 (68) 97 98.5 05/26/25 08:00 Room Air* 0 21 Total Intake and Output 05/25/25 05/25/25 05/26/25 15:00 23:00 07:00 Intake Total 10 ml 120 ml 1500 ml Output Total 0 ml Balance 10 ml 120 ml 1500 ml objective General: NAD, AAOX3 Chest: lung gauthier clear to auscultation Heart: RRR, no murmur Abdomen: Moderate tenderness in upper abdomen tenderness to palpation, +BS laboratory and microbiology Laboratory Tests 05/25/25 13:04 Test 05/25/25 13:04 Range/Units Serum Glucose 94 74-106 mg/dL Problems(with codes): (1) Gastroenteritis (2) Gastritis (3) Intractable abdominal pain Prognosis Plan Continue supportive care Ppi and Carafate Outpatient follow up with me in 4-6 weeks to review biopsy results or if symptoms worsen Discharge planning is in progress Plan discussed with: Patient RED BURT MD May 26, 2025 22:25
== END 2025-05-26 13:00 | disposition home or self-care (01) | DRG 248 ==
LOC: ER 15:00 → OVERFLOW 23:23 → ER 23:26 → OVERFLOW 05-24 01:14 → EAST 05-25 15:14
PROVIDERS: ADMIT Internal Medicine; ATTEND Internal Medicine
PROC: 0DB68ZX Excision of Stomach, Via Natural or Artificial Opening Endoscopic, Diagnostic (ICD-10-PCS; 2025-05-25)
PROC: 0DB98ZX Excision of Duodenum, Via Natural or Artificial Opening Endoscopic, Diagnostic (ICD-10-PCS; principal; 2025-05-25 14:32)
DX: A04.9 Bacterial intestinal infection, unspecified (principal); K29.70 Gastritis, unspecified, without bleeding; Z90.49 Acquired absence of other specified parts of digestive tract; Z79.899 Other long term (current) drug therapy
CPT/HCPCS: 36415; 43239; 74176; 80048; 80053; 81001; 83605; 83690; 84702; 85025; 85610; 85730; 86803; 87045; 87340; 87427; 96365; 96375; G0378; J2250; J2405; J2470; J2543; J3490